=== PATIENT | male | born 1955 | race Caucasian/White ===

== ENCOUNTER 2022-11-01 14:16 | Outpatient (REF) | payer MEDICARE, MEDICAID, SELFPAY ==
[2022-11-01 16:05] LABS: Hemoglobin A1C 5.9 % (<5.7)
== END 2022-11-01 14:17 | disposition home or self-care (01) ==
LOC: LBN 14:16
PROVIDERS: Visit Provider Family Medicine
DX: E11.9 Type 2 diabetes mellitus without complications (principal)
CPT/HCPCS: 36415; 83036

== ENCOUNTER → 2024-07-08 13:57 | Outpatient (BNVA) | payer MEDICARE, MEDICAID, SELFPAY | PROVIDERS: Visit Provider Surgery | DX: K21.9 Gastro-esophageal reflux disease without esophagitis (principal); E78.5 Hyperlipidemia, unspecified; E11.9 Type 2 diabetes mellitus without complications; I10 Essential (primary) hypertension; E66.9 Obesity, unspecified; Z83.719 Family history of colon polyps, unspecified | CPT/HCPCS: 99204 ==

== ENCOUNTER 2025-07-07 04:43 | Outpatient (CLI) | payer MEDICARE, MEDICAID, SELFPAY ==
[2025-07-07 10:02] LABS: Abs Immature Grans 0.03 10^3/uL (0.0-0.06); HCT 38.7 % (40.0-50.0); HGB 13.3 g/dL (13.5-17.5); Immature Grans % 0.4 %; MCH 32.4 pg (27.0-33.0); MCHC 34.4 % (32.0-36.0); MCV 94 fL (80-95); MPV 9.3 fL (8.0-11.0); Platelet Count 248 10^3/uL (130-400); RBC 4.11 10^6/uL (4.36-5.78); RDW 12.3 % (11.8-14.1); RDW-SD 42.7 fL; WBC 7.17 10^3/uL (4.4-10.8)
[2025-07-07 10:30] LABS: ALT 29 U/L (16-63); AST 17 U/L (15-37); Albumin 3.8 g/dL (3.4-5.0); Alkaline Phosphatase 81 U/L (46-116); Anion Gap 7.2 mmol/L (3-11); BUN 23 mg/dL (7-18); Bilirubin, Total 0.6 mg/dL (0.2-1.0); CO2 30.8 mmol/L (21.0-32.0); Calcium 9.5 mg/dL (8.5-10.1); Chloride 101 mmol/L (98-107); Estimated GFR 39.99 (mL/min/1.73m2); Glucose 217 mg/dL (74-106); Potassium 3.6 mmol/L (3.5-5.1); Sodium 139 mmol/L (136-145); TSH 1.22 uIU/mL (0.36-3.74); Total Protein 7.0 g/dL (6.4-8.2)
== END 2025-07-07 04:44 | disposition home or self-care (01) ==
LOC: LBO 04:43
PROVIDERS: Visit Provider Internal Medicine Hematology & Oncology
DX: Z79.899 Other long term (current) drug therapy (principal); C22.0 Liver cell carcinoma
CPT/HCPCS: 36415; 80053; 82105; 84439; 84443; 85025

== ENCOUNTER 2025-08-04 11:10 | Outpatient (CLI) | payer MEDICARE, MEDICAID, SELFPAY ==
[2025-08-04 07:55] LABS: Abs Immature Grans 0.04 10^3/uL (0.0-0.06); HCT 37.3 % (40.0-50.0); HGB 12.7 g/dL (13.5-17.5); Immature Grans % 0.5 %; MCH 32.3 pg (27.0-33.0); MCHC 34.0 % (32.0-36.0); MCV 95 fL (80-95); MPV 9.0 fL (8.0-11.0); Platelet Count 225 10^3/uL (130-400); RBC 3.93 10^6/uL (4.36-5.78); RDW 12.9 % (11.8-14.1); RDW-SD 45.1 fL; WBC 8.31 10^3/uL (4.4-10.8)
[2025-08-04 08:16] LABS: ALT 27 U/L (16-63); AST 17 U/L (15-37); Albumin 3.7 g/dL (3.4-5.0); Alkaline Phosphatase 70 U/L (46-116); Anion Gap 4.5 mmol/L (3-11); BUN 32 mg/dL (7-18); Bilirubin, Total 0.4 mg/dL (0.2-1.0); CO2 28.5 mmol/L (21.0-32.0); Calcium 9.4 mg/dL (8.5-10.1); Chloride 104 mmol/L (98-107); Estimated GFR 42.83 (mL/min/1.73m2); Glucose 141 mg/dL (74-106); Potassium 4.1 mmol/L (3.5-5.1); Sodium 137 mmol/L (136-145); TSH 1.82 uIU/mL (0.36-3.74); Total Protein 7.0 g/dL (6.4-8.2)
== END 2025-08-04 11:11 | disposition home or self-care (01) ==
LOC: LBO 11:11
PROVIDERS: Visit Provider Internal Medicine Hematology & Oncology
DX: Z79.899 Other long term (current) drug therapy (principal); C22.0 Liver cell carcinoma
CPT/HCPCS: 36415; 80053; 82105; 84439; 84443; 85025

== ENCOUNTER 2025-09-01 04:02 | Outpatient (CLI) | payer MEDICARE, MEDICAID, SELFPAY ==
[2025-09-01 12:11] LABS: HCT 35.7 % (40.0-50.0); HGB 12.5 g/dL (13.5-17.5); MCH 31.9 pg (27.0-33.0); MCHC 35.0 % (32.0-36.0); MCV 91 fL (80-95); MPV 8.6 fL (8.0-11.0); Platelet Count 364 10^3/uL (130-400); RBC 3.92 10^6/uL (4.36-5.78); RDW 12.8 % (11.8-14.1); RDW-SD 42.6 fL; WBC 18.31 10^3/uL (4.4-10.8)
[2025-09-01 12:21] LABS: Abs Immature Grans 0.00 10^3/uL (0.0-0.06); Immature Grans % 0.0 %; RBC Morphology Normal
[2025-09-01 12:41] LABS: ALT 21 U/L (16-63); AST 13 U/L (15-37); Albumin 3.3 g/dL (3.4-5.0); Alkaline Phosphatase 76 U/L (46-116); Anion Gap 7.9 mmol/L (3-11); BUN 34 mg/dL (7-18); Bilirubin, Total 0.3 mg/dL (0.2-1.0); CO2 29.1 mmol/L (21.0-32.0); Calcium 9.4 mg/dL (8.5-10.1); Chloride 104 mmol/L (98-107); Estimated GFR 39.99 (mL/min/1.73m2); Glucose 113 mg/dL (74-106); Potassium 3.5 mmol/L (3.5-5.1); Sodium 141 mmol/L (136-145); TSH 0.47 uIU/mL (0.36-3.74); Total Protein 6.8 g/dL (6.4-8.2)
== END 2025-09-01 04:03 | disposition home or self-care (01) ==
LOC: LBO 04:02
PROVIDERS: Visit Provider Internal Medicine Hematology & Oncology
DX: Z79.899 Other long term (current) drug therapy (principal); C22.0 Liver cell carcinoma
CPT/HCPCS: 36415; 80053; 82105; 84439; 84443; 85025

== ENCOUNTER 2025-10-06 01:38 | Outpatient (CLI) | payer MEDICARE, MEDICAID, SELFPAY ==
[2025-10-06 10:43] LABS: Abs Immature Grans 0.11 10^3/uL (0.0-0.06); HCT 32.8 % (40.0-50.0); HGB 11.0 g/dL (13.5-17.5); Immature Grans % 1.0 %; MCH 31.5 pg (27.0-33.0); MCHC 33.5 % (32.0-36.0); MCV 94 fL (80-95); MPV 9.1 fL (8.0-11.0); Platelet Count 230 10^3/uL (130-400); RBC 3.49 10^6/uL (4.36-5.78); RDW 14.6 % (11.8-14.1); RDW-SD 50.8 fL; WBC 11.41 10^3/uL (4.4-10.8)
[2025-10-06 11:17] LABS: ALT 75 U/L (16-63); AST 17 U/L (15-37); Albumin 2.8 g/dL (3.4-5.0); Alkaline Phosphatase 73 U/L (46-116); Anion Gap 8.3 mmol/L (3-11); BUN 72 mg/dL (7-18); Bilirubin, Total 0.3 mg/dL (0.2-1.0); CO2 22.7 mmol/L (21.0-32.0); Calcium 8.6 mg/dL (8.5-10.1); Chloride 103 mmol/L (98-107); Glucose 274 mg/dL (74-106); Potassium 4.8 mmol/L (3.5-5.1); Sodium 134 mmol/L (136-145); TSH 1.41 uIU/mL (0.36-3.74); Total Protein 5.6 g/dL (6.4-8.2)
[2025-10-06 11:20] LABS: C-Reactive Protein < 0.50 mg/dL (<or=0.5)
== END 2025-10-06 01:39 | disposition home or self-care (01) ==
LOC: LBO 01:39
PROVIDERS: Visit Provider Internal Medicine Hematology & Oncology
DX: R19.7 Diarrhea, unspecified (principal); C22.0 Liver cell carcinoma
CPT/HCPCS: 36415; 80053; 82105; 84439; 84443; 85025; 86140

== ENCOUNTER 2025-10-07 10:36 | Outpatient (CLI) | payer MEDICARE, MEDICAID, SELFPAY ==
[2025-10-07 10:32] LABS: Abs Immature Grans 0.14 10^3/uL (0.0-0.06); HCT 32.8 % (40.0-50.0); HGB 11.0 g/dL (13.5-17.5); Immature Grans % 1.4 %; MCH 32.3 pg (27.0-33.0); MCHC 33.5 % (32.0-36.0); MCV 96 fL (80-95); MPV 8.6 fL (8.0-11.0); Platelet Count 206 10^3/uL (130-400); RBC 3.41 10^6/uL (4.36-5.78); RDW 14.6 % (11.8-14.1); RDW-SD 51.9 fL; WBC 10.18 10^3/uL (4.4-10.8)
[2025-10-07 10:55] LABS: ALT 68 U/L (16-63); AST 16 U/L (15-37); Albumin 2.8 g/dL (3.4-5.0); Alkaline Phosphatase 65 U/L (46-116); Anion Gap 6.9 mmol/L (3-11); BUN 67 mg/dL (7-18); Bilirubin, Total 0.4 mg/dL (0.2-1.0); CO2 25.1 mmol/L (21.0-32.0); Calcium 8.4 mg/dL (8.5-10.1); Chloride 103 mmol/L (98-107); Glucose 247 mg/dL (74-106); Potassium 4.5 mmol/L (3.5-5.1); Sodium 135 mmol/L (136-145); Total Protein 5.7 g/dL (6.4-8.2)
== END 2025-10-07 10:37 | disposition home or self-care (01) ==
LOC: LBO 10:38
PROVIDERS: Visit Provider Internal Medicine Hematology & Oncology
DX: C22.0 Liver cell carcinoma (principal)
CPT/HCPCS: 36415; 80053; 82105; 85025

== ENCOUNTER 2025-10-10 13:35 | Outpatient (CLI) | payer MEDICARE, MEDICAID, SELFPAY ==
[2025-10-10 13:34] LABS: Abs Immature Grans 0.18 10^3/uL (0.0-0.06); HCT 31.2 % (40.0-50.0); HGB 10.3 g/dL (13.5-17.5); Immature Grans % 1.9 %; MCH 31.9 pg (27.0-33.0); MCHC 33.0 % (32.0-36.0); MCV 97 fL (80-95); MPV 8.7 fL (8.0-11.0); Platelet Count 184 10^3/uL (130-400); RBC 3.23 10^6/uL (4.36-5.78); RDW 14.5 % (11.8-14.1); RDW-SD 51.5 fL; WBC 9.34 10^3/uL (4.4-10.8)
[2025-10-10 13:53] LABS: ALT 58 U/L (16-63); AST 15 U/L (15-37); Albumin 2.8 g/dL (3.4-5.0); Alkaline Phosphatase 66 U/L (46-116); Anion Gap 10.0 mmol/L (3-11); BUN 70 mg/dL (7-18); Bilirubin, Total 0.4 mg/dL (0.2-1.0); CO2 22.0 mmol/L (21.0-32.0); Calcium 8.3 mg/dL (8.5-10.1); Chloride 104 mmol/L (98-107); Glucose 287 mg/dL (74-106); Potassium 5.3 mmol/L (3.5-5.1); Sodium 136 mmol/L (136-145); Total Protein 5.8 g/dL (6.4-8.2)
== END 2025-10-10 13:36 | disposition home or self-care (01) ==
LOC: LBO 13:36
PROVIDERS: Visit Provider Internal Medicine Hematology & Oncology
DX: C22.0 Liver cell carcinoma (principal)
CPT/HCPCS: 36415; 80053; 85025

== ENCOUNTER 2025-10-13 02:08 | Outpatient (CLI) | payer MEDICARE, MEDICAID, SELFPAY ==
[2025-10-13 08:26] LABS: Abs Immature Grans 0.19 10^3/uL (0.0-0.06); HCT 29.9 % (40.0-50.0); HGB 9.9 g/dL (13.5-17.5); Immature Grans % 2.1 %; MCH 31.9 pg (27.0-33.0); MCHC 33.1 % (32.0-36.0); MCV 97 fL (80-95); MPV 8.7 fL (8.0-11.0); Platelet Count 179 10^3/uL (130-400); RBC 3.10 10^6/uL (4.36-5.78); RDW 14.6 % (11.8-14.1); RDW-SD 51.8 fL; WBC 8.99 10^3/uL (4.4-10.8)
[2025-10-13 08:44] LABS: ALT 42 U/L (10-49); AST 18 U/L (<34); Albumin 3.3 g/dL (3.4-5.0); Alkaline Phosphatase 60 U/L (46-116); Anion Gap 7.9 mmol/L (3-11); BUN 62 mg/dL (9-23); Bilirubin, Total 0.40 mg/dL (0.2-1.2); CO2 24.1 mmol/L (20.0-31.0); Calcium 8.8 mg/dL (8.3-10.6); Chloride 107 mmol/L (98-107); Glucose 236 mg/dL (74-106); Potassium 5.4 mmol/L (3.5-5.1); Sodium 139 mmol/L (136-145); Total Protein 5.3 g/dL (5.7-8.2)
== END 2025-10-13 02:09 | disposition home or self-care (01) ==
LOC: LBO 02:09
PROVIDERS: Visit Provider Internal Medicine Hematology & Oncology
DX: C22.0 Liver cell carcinoma (principal)
CPT/HCPCS: 36415; 80053; 85025

== ENCOUNTER 2025-10-20 01:50 | Outpatient (CLI) | payer MEDICARE, MEDICAID, SELFPAY ==
[2025-10-20 09:26] LABS: HCT 30.6 % (40.0-50.0); HGB 10.3 g/dL (13.5-17.5); MCH 32.2 pg (27.0-33.0); MCHC 33.7 % (32.0-36.0); MCV 96 fL (80-95); MPV 8.9 fL (8.0-11.0); Platelet Count 173 10^3/uL (130-400); RBC 3.20 10^6/uL (4.36-5.78); RDW 14.6 % (11.8-14.1); RDW-SD 51.5 fL; WBC 9.08 10^3/uL (4.4-10.8)
[2025-10-20 09:42] LABS: Abs Immature Grans 0.00 10^3/uL (0.0-0.06); Immature Grans % 0.0 %; RBC Morphology Normal
[2025-10-20 09:43] LABS: ALT 34 U/L (10-49); AST 19 U/L (<34); Albumin 3.6 g/dL (3.4-5.0); Alkaline Phosphatase 52 U/L (46-116); Anion Gap 7.8 mmol/L (3-11); BUN 64 mg/dL (9-23); Bilirubin, Total 0.40 mg/dL (0.2-1.2); CO2 25.2 mmol/L (20.0-31.0); Calcium 8.9 mg/dL (8.3-10.6); Chloride 105 mmol/L (98-107); Glucose 153 mg/dL (74-106); Potassium 3.8 mmol/L (3.5-5.1); Sodium 138 mmol/L (136-145); Total Protein 5.6 g/dL (5.7-8.2)
== END 2025-10-20 01:51 | disposition home or self-care (01) ==
LOC: LBO 01:50
PROVIDERS: Visit Provider Internal Medicine Hematology & Oncology
DX: C22.0 Liver cell carcinoma (principal)
CPT/HCPCS: 36415; 80053; 85025

== ENCOUNTER → 2025-10-26 01:52 | Outpatient (CLI) | payer MEDICARE, MEDICAID, SELFPAY ==
--- NOTE | 2025-10-26 | DI.US_ITS ---
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 HYDRONEPHROSIS. TECHNIQUE: Pérez scale, color and spectral Doppler were used. COMPARISON: No exams were available for comparison FINDINGS: Renal size in cm: Right: 11.2. Left: 11.9. Echogenicity: Normal. Hydronephrosis: No. Cyst or mass: 1.6 x 1.1 x 1.7 cm cyst in the inferior pole of the right kidney. There are internal echoes. Nephrolithiasis: No. Other findings: None. Bladder:Normal. Ureteral jets: Right: Not visualized on this examination. Left: Not visualized on this examination. Prevoid vol:130 cc Postvoid vol:Not obtained on this examination. Prostate: 2.9 cc. The prostate gland was poorly visualized on this examination. Renal color flow: Symmetric and within normal limits. IMPRESSION: 1. There is no evidence of hydronephrosis. 2. Complex cyst in the inferior pole of the right kidney. Nonemergent CT scan of the kidneys is recommended for further characterization. DATA REPOSITORY:
== END ==
LOC: DI 01:52
PROVIDERS: Visit Provider Internal Medicine Hematology & Oncology
DX: C22.0 Liver cell carcinoma (principal); N28.9 Disorder of kidney and ureter, unspecified
CPT/HCPCS: 76770

== ENCOUNTER 2025-11-10 01:37 | Outpatient (CLI) | payer MEDICARE, MEDICAID, SELFPAY ==
[2025-11-10 11:44] LABS: Abs Immature Grans 0.31 10^3/uL (0.0-0.06); HCT 29.4 % (40.0-50.0); HGB 9.5 g/dL (13.5-17.5); Immature Grans % 3.3 %; MCH 31.8 pg (27.0-33.0); MCHC 32.3 % (32.0-36.0); MCV 98 fL (80-95); MPV 8.6 fL (8.0-11.0); Platelet Count 206 10^3/uL (130-400); RBC 2.99 10^6/uL (4.36-5.78); RDW 13.9 % (11.8-14.1); RDW-SD 50.4 fL; WBC 9.51 10^3/uL (4.4-10.8)
[2025-11-10 12:01] LABS: Glucose Negative (Negative)
[2025-11-10 12:03] LABS: C & S Indicated? No; RBC Negative HPF (0-2); WBC Negative HPF (0-5)
[2025-11-10 12:04] LABS: ALT 20 U/L (10-49); AST 16 U/L (<34); Albumin 3.9 g/dL (3.2-5.0); Alkaline Phosphatase 65 U/L (46-116); Anion Gap 6.4 mmol/L (3-11); BUN 37 mg/dL (9-23); Bilirubin, Total 0.4 mg/dL (0.2-1.2); CO2 25.6 mmol/L (20.0-31.0); Calcium 9.4 mg/dL (8.3-10.6); Chloride 108 mmol/L (98-107); Glucose 119 mg/dL (74-106); Potassium 4.9 mmol/L (3.5-5.1); Sodium 140 mmol/L (136-145); Total Protein 6.3 g/dL (5.7-8.2)
[2025-11-10 12:08] LABS: TSH 1.58 uIU/mL (0.55-4.78)
[2025-11-10 14:29] LABS: Sodium, Urine 105 mmol/L
[2025-11-10 15:11] LABS: Prot/Crea Ur Ratio 0.70 mg/mg Cr
[2025-11-11 15:47] LABS: Albumin, Urine % 32.7 %; Albumin, Urine mg/dL 10 mg/dL; Globulins, Urine % 67.3 %; Globulins, Urine mg/dL 21 mg/dL
== END 2025-11-10 01:38 | disposition home or self-care (01) ==
LOC: LBO 01:37
PROVIDERS: Visit Provider Internal Medicine Hematology & Oncology
DX: Z79.899 Other long term (current) drug therapy (principal); C22.0 Liver cell carcinoma; N28.9 Disorder of kidney and ureter, unspecified
CPT/HCPCS: 36415; 80053; 84156; 84166; 86335; 81003; 81015; 82105; 82565; 84300; 84439; 84443; 85025

== ENCOUNTER 2025-11-23 00:38 | Outpatient (CLI) | payer MEDICARE, MEDICAID, SELFPAY ==
[2025-11-23 10:08] LABS: Abs Immature Grans 0.24 10^3/uL (0.0-0.06); HCT 30.3 % (40.0-50.0); HGB 9.8 g/dL (13.5-17.5); Immature Grans % 2.3 %; MCH 31.3 pg (27.0-33.0); MCHC 32.3 % (32.0-36.0); MCV 97 fL (80-95); MPV 8.8 fL (8.0-11.0); Platelet Count 296 10^3/uL (130-400); RBC 3.13 10^6/uL (4.36-5.78); RDW 13.2 % (11.8-14.1); RDW-SD 47.3 fL; WBC 10.59 10^3/uL (4.4-10.8)
[2025-11-23 10:37] LABS: Folate 17.2 ng/mL (>5.38)
[2025-11-23 10:39] LABS: Ferritin 227 ng/mL (11-307); TSH 1.67 uIU/mL (0.55-4.78)
[2025-11-23 10:40] LABS: Vitamin B12 406 pg/mL (211-911)
[2025-11-23 10:42] LABS: ALT 12 U/L (10-49); AST 15 U/L (<34); Albumin 4.1 g/dL (3.2-5.0); Alkaline Phosphatase 83 U/L (46-116); Anion Gap 8.4 mmol/L (3-11); BUN 26 mg/dL (9-23); Bilirubin, Total 0.4 mg/dL (0.2-1.2); CO2 24.6 mmol/L (20.0-31.0); Calcium 9.1 mg/dL (8.3-10.6); Chloride 110 mmol/L (98-107); Glucose 154 mg/dL (74-106); Potassium 4.3 mmol/L (3.5-5.1); Sodium 143 mmol/L (136-145); Total Protein 6.7 g/dL (5.7-8.2)
[2025-11-23 12:02] LABS: Iron 74 ug/dL (65-175); Total Iron Binding Capacity 276 ug/dL (250-425); Transferrin Sat 27 % (20-55)
== END 2025-11-23 00:39 | disposition home or self-care (01) ==
LOC: LBO 00:38
PROVIDERS: Visit Provider Internal Medicine Hematology & Oncology
DX: D53.9 Nutritional anemia, unspecified (principal); Z79.899 Other long term (current) drug therapy; C22.0 Liver cell carcinoma
CPT/HCPCS: 36415; 80053; 82607; 82728; 82746; 83540; 83550; 84439; 84443; 85025; 85045

== ENCOUNTER 2025-11-30 11:03 | Outpatient (CLI) | payer MEDICARE, MEDICAID, SELFPAY ==
[2025-11-30 11:41] LABS: Abs Immature Grans 0.19 10^3/uL (0.0-0.06); HCT 28.8 % (40.0-50.0); HGB 9.5 g/dL (13.5-17.5); Immature Grans % 1.4 %; MCH 31.6 pg (27.0-33.0); MCHC 33.0 % (32.0-36.0); MCV 96 fL (80-95); MPV 8.5 fL (8.0-11.0); Platelet Count 322 10^3/uL (130-400); RBC 3.01 10^6/uL (4.36-5.78); RDW 13.0 % (11.8-14.1); RDW-SD 45.9 fL; WBC 13.41 10^3/uL (4.4-10.8)
[2025-11-30 11:59] LABS: ALT 12 U/L (10-49); AST 14 U/L (<34); Albumin 4.1 g/dL (3.2-5.0); Alkaline Phosphatase 87 U/L (46-116); Anion Gap 6.8 mmol/L (3-11); BUN 29 mg/dL (9-23); Bilirubin, Total 0.4 mg/dL (0.2-1.2); CO2 25.2 mmol/L (20.0-31.0); Calcium 9.2 mg/dL (8.3-10.6); Chloride 107 mmol/L (98-107); Glucose 236 mg/dL (74-106); Potassium 4.1 mmol/L (3.5-5.1); Sodium 139 mmol/L (136-145); Total Protein 6.8 g/dL (5.7-8.2)
[2025-11-30 12:03] LABS: TSH 0.65 uIU/mL (0.55-4.78)
== END 2025-11-30 11:04 | disposition home or self-care (01) ==
LOC: LBO 11:03
PROVIDERS: Visit Provider Internal Medicine Hematology & Oncology
DX: Z79.899 Other long term (current) drug therapy (principal); C22.0 Liver cell carcinoma; D53.9 Nutritional anemia, unspecified
CPT/HCPCS: 36415; 80053; 82533; 82105; 84439; 84443; 85025